=== PATIENT | female | born 1990 ===

== ENCOUNTER 2022-10-03 06:13 | Inpatient (IN) | payer OTHER ==
[~2022-10-03] VITALS: Ht 152.4 cm; Wt 3.2 kg
[2022-10-03] MEDS ORDERED: PRENATAL + DHA1 EAC1 PO (08:02)
[2022-10-06] MEDS ORDERED: IBUPROFEN600 MG PO (12:51)
[2022-10-06] MEDS ORDERED: DOCUSATE SODIU100 MG PO (12:52)
== END 2022-10-06 13:02 | disposition home or self-care (01) | DRG 785 ==
LOC: LDR 06:13 → OB/GYN 06:13 → O/R 13:46 → OB/GYN 15:14
PROVIDERS: ADMIT Obstetrics & Gynecology; ATTEND Obstetrics & Gynecology
PROC: 0UB70ZZ Excision of Bilateral Fallopian Tubes, Open Approach (ICD-10-PCS; 2022-10-03)
PROC: 4A1HXCZ Monitoring of Products of Conception, Cardiac Rate, External Approach (ICD-10-PCS; 2022-10-03)
PROC: 10D00Z1 Extraction of Products of Conception, Low, Open Approach (ICD-10-PCS; principal; 2022-10-03 13:15)
DX: O34.211 Maternal care for low transverse scar from previous cesarean delivery (principal); Z3A.37 37 weeks gestation of pregnancy; Z37.0 Single live birth; Z20.822 Contact with and (suspected) exposure to COVID-19; Z30.2 Encounter for sterilization